=== PATIENT | male | born 1950 | race Caucasian/White ===

== ENCOUNTER 2019-06-13 08:03 | Emergency (ER) | payer MEDICARE, BC ==
[~2019-06-13] VITALS: Ht 180.3 cm; Wt 106.8 kg
[~2019-06-13 08:03] MED LIST: ANAS1TAB PO; ASPI-1071 PO; ATOR20TA66 PO; BUPR100T6 PO; DULO30CA52 PO; LOSA100T57 PO; PREG150C PO; PROP40TA72 PO; RIVA20TA PO; TEST200V10 IM
[2019-06-13] MEDS ORDERED: normal saline 1000ML IV soln IVB ONE (08:10)
--- NOTE | 2019-06-13 08:48 | NUR ---
Patient to CT
[2019-06-13 09:13] LABS: BASOPHILS % (AUTO) 0.4 % (0-1); EOSINOPHILS # (AUTO) 0.4 X10'3 (0-0.9); EOSINOPHILS % (AUTO) 5.8 % (0-6); HEMOGLOBIN 14.4 g/dl (14.0-17.9); LYMPHOCYTES # (AUTO) 1.9 X10'3 (1.1-4.8); LYMPHOCYTES % (AUTO) 30.6 % (21-51); MEAN CORPUSCULAR HEMOGLOBIN 31.2 PG (27.0-31.0); MEAN CORPUSCULAR HGB CONC 34.3 g/dL (33.0-36.5); MEAN CORPUSCULAR VOLUME 90.9 FL (78-98); MEAN PLATELET VOLUME 8.1 FL (7.4-10.4); MONOCYTES # (AUTO) 0.7 X10'3 (0-0.9); MONOCYTES % (AUTO) 10.4 % (2-12); NEUTROPHILS # (AUTO) 3.3 X10'3 (1.8-7.7); NEUTROPHILS % (AUTO) 52.8 % (42-75); PLATELET COUNT 218 X10'3 (140-440); RED BLOOD COUNT 4.62 X10'6 (4.70-6.10); RED CELL DISTRIBUTION WIDTH 13.3 % (11.5-14.5); WHITE BLOOD COUNT 6.3 X10'3 (4.5-11.0)
[2019-06-13 09:31] LABS: ALANINE AMINOTRANSFERASE 34 U/L (12-78); ALBUMIN 3.3 G/DL (3.4-5.0); ALBUMIN/GLOBULIN RATIO 1.1 (1.1-1.5); ALKALINE PHOSPHATASE 99 IU/L (46-116); ANION GAP 7 (8-16); ASPARTATE AMINO TRANSFERASE 22 U/L (10-37); BILIRUBIN,TOTAL 0.8 MG/DL (0.1-1.0); BLOOD UREA NITROGEN 20 MG/DL (7-18); BUN/CREATININE RATIO 13.2 (5.4-32.0); CALCIUM 8.7 MG/DL (8.5-10.1); CHLORIDE 109 MMOL/L (99-107); CREATININE 1.52 MG/DL (0.60-1.10); GLUCOSE 104 MG/DL (70-104); POTASSIUM 3.9 MMOL/L (3.5-5.1); SODIUM 143 MMOL/L (135-145); TOTAL CARBON DIOXIDE 27.4 MMOL/L (24-32); TOTAL PROTEIN 6.4 G/DL (6.4-8.2); eGFR 45 ML/MIN
[2019-06-13] MEDS ORDERED: HYDROcodone/acetaminophen 10/325mg tab PO ONE (10:20)
[2019-06-13] MEDS ORDERED: HYDR-4383 PO (10:23)
[2019-06-13 10:27] VITALS: BP 115/75
== END 2019-06-13 10:30 | disposition home or self-care (01) ==
LOC: ER 08:03
DX: S22.42XA Multiple fractures of ribs, left side, initial encounter for closed fracture (principal); S30.1XXA Contusion of abdominal wall, initial encounter; I95.1 Orthostatic hypotension; R11.10 Vomiting, unspecified; Z98.890 Other specified postprocedural states; Z88.8 Allergy status to other drugs, medicaments and biological substances; Z79.82 Long term (current) use of aspirin; Z79.899 Other long term (current) drug therapy; W18.30XA Fall on same level, unspecified, initial encounter; Y93.89 Activity, other specified; Y92.89 Other specified places as the place of occurrence of the external cause; Y99.9 Unspecified external cause status
CPT/HCPCS: 36415; 70450; 71045; 74176; 80053; 82948; 85025; 85610; 93005; 96360; 99284; J7030

== ENCOUNTER 2022-01-20 00:22 | Outpatient (CLI) | payer MEDICARE, BC ==
[~2022-01-20 00:22] MED LIST changes: +BUPR-113 PO; -BUPR100T6 PO; +HYDR-4383 PO; -TEST200V10 IM; +TEST200V33 IM
== END 2022-01-20 23:59 | disposition home or self-care (01) ==
LOC: RT 00:22
PROVIDERS: ATTEND Student in an Organized Health Care Education/Training Program
DX: J84.9 Interstitial pulmonary disease, unspecified (principal); Z86.16 Personal history of COVID-19

== ENCOUNTER 2022-07-13 08:25 | Inpatient (IN) | payer MEDICARE, BC ==
[2022-07-06 16:15] LABS: BASOPHILS % (AUTO) 0.4 % (0-1); EOSINOPHILS # (AUTO) 0.1 X10'3 (0-0.9); EOSINOPHILS % (AUTO) 1.2 % (0-6); LYMPHOCYTES # (AUTO) 2.2 X10'3 (1.1-4.8); LYMPHOCYTES % (AUTO) 30.5 % (21-51); MEAN CORPUSCULAR HEMOGLOBIN 31.7 PG (27.0-31.0); MEAN CORPUSCULAR HGB CONC 33.9 g/dL (33.0-36.5); MEAN CORPUSCULAR VOLUME 93.6 FL (78-98); MEAN PLATELET VOLUME 7.2 FL (7.4-10.4); MONOCYTES # (AUTO) 0.5 X10'3 (0-0.9); MONOCYTES % (AUTO) 7.3 % (2-12); NEUTROPHILS # (AUTO) 4.4 X10'3 (1.8-7.7); NEUTROPHILS % (AUTO) 60.6 % (42-75); PRE OP HEMATOCRIT 41.3 % (42.0-52.0); PRE OP PLATELET COUNT 258 X10'3 (140-440); RED BLOOD COUNT 4.41 X10'6 (4.70-6.10); RED CELL DISTRIBUTION WIDTH 14.5 % (11.5-14.5)
[2022-07-06 16:45] LABS: ALBUMIN 4.1 G/DL (3.4-5.0); ALBUMIN/GLOBULIN RATIO 1.3 (1.1-1.5); ALKALINE PHOSPHATASE 79 IU/L (46-116); BLOOD UREA NITROGEN 19 MG/DL (7-18); BUN/CREATININE RATIO 17.3 (5.4-32.0); CALCIUM 9.2 MG/DL (8.5-10.1); PRE OP ALT 35 U/L (30-65); PRE OP AST 23 U/L (10-37); PRE OP BILIRUB, TOTAL 0.8 MG/DL (0.0-1.0); PRE OP GLUCOSE 98 MG/DL (70-104); TOTAL CARBON DIOXIDE 30.2 MMOL/L (24-32); TOTAL PROTEIN 7.2 G/DL (6.4-8.2); eGFR 65 ML/MIN
[2022-07-06 16:54] LABS: CHLORIDE 104 MMOL/L (99-107); PRE OP ANION GAP 5 (8-16); PRE OP SODIUM 139 MMOL/L (135-145)
[2022-07-13] VITALS (27 sets, daily range): BP systolic 97–155; BP diastolic 65–96
[~2022-07-13] VITALS: Ht 182.9 cm; Wt 96.3 kg
[2022-07-13] MEDS: budesonide 0.5mg/2ml UD nebule IH SCH ×2 (08:00→20:00)
[~2022-07-13 08:25] MED LIST changes: +ACET-2971 PO; +ALBU2.5V12 NEB; -ANAS1TAB PO; -ASPI-1071 PO; -ATOR20TA66 PO; +BUDE0.5A3 NEB; +DABI150C PO; +FINA5TAB11 PO; -HYDR-4383 PO; +HYDROcodone/acetaminophen 10/325mg tab PO PRN; +HYDROmorphone 1 mg/ml syringe IV PRN; +HYDROmorphone inj. 0.5 MG/0.5 ML DISP.SYRIN IV PRN; -LOSA100T57 PO; -PREG150C PO; -PROP40TA72 PO; +QUET50TA24 PO; -RIVA20TA PO; +SILO4CAP3 PO; -TEST200V33 IM; +acetaminophen 325mg tablet PO ONE; +acetaminophen 325mg tablet PO PRN; +albuterol 2.5 MG/3 ML nebule NEB ONE; +albuterol 2.5 MG/3 ML nebule NEB PRN; +bisacodyl 10mg suppository rectal RC PRN; +ceFAZolin inj. 2,000 MG in dextrose 5%-water 100 ML IV ONE; +celeCOXIB 100mg capsule PO ONE; +diphenhydrAMINE 25mg capsule PO PRN; +famotidine 20mg tablet PO ONE; +gabapentin 300mg capsule PO ONE; +magnesium hydroxide 30ml (MOM) UD suspension PO PRN; +metoclopramide 5 mg/ml inj IV ONE; +naloxone 0.4 mg/ml inj IV PRN; +ondansetron/PF 4mg/2ml inj IV PRN; +oxyCODONE SR 10mg (sust. release) tab -2 tabs (20mg) PO ONE; +potassium cl 20mEq in 1/2 NS 1,000 ML IV SCH; +ringers solution, lacted 1,000 ML IV SCH; +tranexamic acid inj. 1,000 MG in normal saline IV soln 100ML IV ONE; +vancomycin 1,500 MG in NS 300ml IV soln IV ONE
[2022-07-13] MEDS ORDERED: ketorolac trometh. 30mg/ml inj. ONE (11:57)
[2022-07-13] MEDS ORDERED: epiNEPHrine 1 mg/ml inj ONE (11:58)
[2022-07-13] MEDS ORDERED: cloNIDine hcl/PF 100mcg/ml inj ONE (11:58)
[2022-07-13] MEDS ORDERED: ROPIVAcaine 0.5% (5mg/ml) 30ml vial ONE ×2 (11:58→14:46)
[2022-07-13] MEDS ORDERED: ondansetron/PF 4mg/2ml inj IV PRN (12:35)
[2022-07-13] MEDS ORDERED: ROPIVAcaine 0.2%/PF PUMP/bolus 545 ML ADDCANAL SCH (12:35)
[2022-07-13] MEDS ORDERED: proCHLORperazine 10 MG/2 ml inj IV PRN (12:35)
[2022-07-13] MEDS ORDERED: meperidine/PF 25mg/ml syringe IV PRN ×3 (12:35)
[2022-07-13] MEDS ORDERED: ROPIVAcaine 0.2% (10 MG/5 ML) BOLUS INJECTION ADDCANAL PRN (12:35)
[2022-07-13] MEDS ORDERED: morphine 4 MG/ML inj SYRINge IV PRN (12:35)
[2022-07-13] MEDS ORDERED: ringers solution, lacted 1,000 ML IV SCH (12:35)
[2022-07-13] MEDS ORDERED: morphine 2 MG/ML inj. syringe IV PRN (12:35)
[2022-07-13] MEDS ORDERED: propofol 10mg/ml 20ml vial IV ONE (12:39)
[2022-07-13] MEDS ORDERED: fentaNYL/PF 50MCG/1 ML 2ML syringe ONE (12:42)
[2022-07-13] MEDS ORDERED: midazolam 1 mg/ML 2ml injection ONE ×2 (12:43→12:57)
[2022-07-13] MEDS ORDERED: ROPIVAcaine 0.5% (5mg/ml) 30ml vial IJ ONE (13:25)
[2022-07-13] MEDS ORDERED: epiNEPHrine 1 MG/ML 1 ml ampule **BRONCH ONLY SQ ONE (13:26)
[2022-07-13] MEDS ORDERED: ketorolac trometh. 30mg/ml inj. IV ONE (13:27)
[2022-07-13] MEDS ORDERED: cloNIDine hcl/PF 100mcg/ml inj EP ONE (13:27)
[2022-07-13] MEDS ORDERED: vancomycin 1,000mg inj ONE (13:59)
[2022-07-13] MEDS ORDERED: tranexamic acid inj. 1,000 MG in normal saline 100ml IV soln 90 ML IV ONE (14:00)
--- NOTE | 2022-07-13 14:50 | NUR ---
Received from OR via , accompanied by Anesthesiologist TRIP AND OR NURSE and report given by Anesthesiolgist. RT TOTAL KNEE WITH MEJIA DRESSING AND ONQ CATH. PT IS A/O X4 AND DENIES PAIN OR DISCOMORT. PT HAS A CUNNINGHAM DUE TO URINARY RETENTION. WAITING FOR A ROOM TO ORTHO. ROOM AIR; VSS Addendum: 07/13/22 at 1813 by Sandra Gomez RN Amended: Links added.
--- NOTE | 2022-07-13 17:50 | NUR ---
PATIENT TAKEN TO ROOM WITH ALL BELONGINGS AND HOOKED UP TO MONITORS IN ROOM AND GIVEN CALL LIGHT, REPORT GIVEN TO RN WHO HAS TAKEN OVER PATIENT CARE. Addendum: 07/13/22 at 1819 by Sandra Gomez RN Amended: Links added.
[2022-07-13] MEDS: duloxetine 30mg CAPSULE.DR PO SCH (19:21)
[2022-07-13] MEDS: ascorbic acid 500mg tablet PO SCH ×2 (19:22→20:35)
[2022-07-13] MEDS: buPROPion SR 100mg tab PO SCH ×2 (19:22→22:03)
[2022-07-13] MEDS: multivitamins, therapeutics tablet PO SCH (19:22)
[2022-07-13] MEDS: finasteride 5mg tablet PO SCH (19:22)
[2022-07-13] MEDS: dabigatran 150mg capsule PO SCH ×2 (19:24→22:03)
[2022-07-13] MEDS: gabapentin 300mg capsule PO SCH ×3 (19:24→20:35)
[2022-07-13] MEDS ORDERED: VANCOMYCIN 1,500MG inj. 1,500 MG in normal saline 500ml IV soln 300 ML IV ONE (20:00)
[2022-07-13] MEDS ORDERED: QUEtiapine 25mg tablet PO SCH (21:00)
[2022-07-13] MEDS ORDERED: sennosides 8.6mg tablet PO SCH (21:00)
[2022-07-14 06:00] VITALS: BP 126/80
[2022-07-14 07:19] LABS: BASOPHILS % (AUTO) 0.1 % (0-1); EOSINOPHILS % (AUTO) 0.1 % (0-6); HEMATOCRIT 38.1 % (42.0-52.0); HEMOGLOBIN 12.4 g/dl (14.0-17.9); LYMPHOCYTES # (AUTO) 1.3 X10'3 (1.1-4.8); LYMPHOCYTES % (AUTO) 14.1 % (21-51); MEAN CORPUSCULAR HEMOGLOBIN 30.7 PG (27.0-31.0); MEAN CORPUSCULAR HGB CONC 32.4 g/dL (33.0-36.5); MEAN CORPUSCULAR VOLUME 94.6 FL (78-98); MEAN PLATELET VOLUME 7.5 FL (7.4-10.4); MONOCYTES # (AUTO) 0.9 X10'3 (0-0.9); MONOCYTES % (AUTO) 9.7 % (2-12); PLATELET COUNT 234 X10'3 (140-440); RED BLOOD COUNT 4.03 X10'6 (4.70-6.10); RED CELL DISTRIBUTION WIDTH 14.3 % (11.5-14.5); WHITE BLOOD COUNT 9.3 X10'3 (4.5-11.0)
[2022-07-14 07:33] LABS: ANION GAP 5 (8-16); CHLORIDE 107 MMOL/L (99-107); POTASSIUM 4.1 MMOL/L (3.5-5.1); SODIUM 140 MMOL/L (135-145); TOTAL CARBON DIOXIDE 27.8 MMOL/L (24-32)
[2022-07-14] MEDS: multivitamins, therapeutics tablet PO SCH (08:12)
[2022-07-14] MEDS: gabapentin 300mg capsule PO SCH (08:13)
[2022-07-14] MEDS: duloxetine 30mg CAPSULE.DR PO SCH (08:13)
[2022-07-14] MEDS: ascorbic acid 500mg tablet PO SCH (08:13)
[2022-07-14] MEDS: buPROPion SR 100mg tab PO SCH (08:24)
[2022-07-14] MEDS: dabigatran 150mg capsule PO SCH (08:24)
[2022-07-14] MEDS: finasteride 5mg tablet PO SCH (08:24)
[2022-07-14] MEDS: budesonide 0.5mg/2ml UD nebule IH SCH (08:34)
--- NOTE | 2022-07-14 10:45 | NUR ---
Joint surgery consult: Pt s/p R knee surgery this admit per EMR. Pt/SO seen by KIAN for written/verbal high protein diet ed w/ RD contact information provided. KIAN encouraged pt/SO to contact dietitian's office if further nutrition questions/concerns. Addendum: 07/14/22 at [address] Amended: Links added.
[2022-07-14] MEDS ORDERED: celeCOXIB 100mg capsule PO SCH (20:00)
== END 2022-07-14 11:50 | disposition home or self-care (01) | DRG 470 ==
LOC: PAS 08:25 → ORTHO 4S 17:54
PROVIDERS: ADMIT Orthopaedic Surgery; ATTEND Orthopaedic Surgery
PROC: 3E0T3BZ Introduction of Anesthetic Agent into Peripheral Nerves and Plexi, Percutaneous Approach (ICD-10-PCS; 2022-07-13)
PROC: 3E0T33Z Introduction of Anti-inflammatory into Peripheral Nerves and Plexi, Percutaneous Approach (ICD-10-PCS; 2022-07-13)
PROC: 0SRC0J9 Replacement of Right Knee Joint with Synthetic Substitute, Cemented, Open Approach (ICD-10-PCS; principal; 2022-07-13 12:39)
DX: M17.11 Unilateral primary osteoarthritis, right knee (principal)
CPT/HCPCS: 36415; 71046; 73560; 80051; 80053; 82948; 83036; 84443; 85025; 86885; 86900; 86901; 87081; 94640; 94760; 97110; 97116; 97161; G0378; J0171; J0690; J0735; J1885; J2250; J2704; J2765; J2795; J3010; J3370; J3480; J3490; J7040; J7060; J7120